=== PATIENT | male | born 1990 | race Two or more races ===

== ENCOUNTER 2021-10-13 16:11 | Emergency (ER) | payer SELFPAY ==
[~2021-10-13] VITALS: Ht 175.3 cm; Wt 90.0 kg
[2021-10-13] MEDS ORDERED: EPINEPHrine 1 MG/ML VIAL ONE (16:25)
[2021-10-13] MEDS ORDERED: IV RINGERS,LACTATED 1000ML 1,000 ML IV SCH (16:30)
[2021-10-13] MEDS ORDERED: EPINEPHrine 1 MG/ML VIAL SQ ONE (16:30)
[2021-10-13 16:32] VITALS: BP 137/88
[2021-10-13 16:37] LABS: BASO # 0.1 x10^3/uL (0.0-0.2); BASO % 1 % (0-3); EOS # 0.1 x10^3/uL (0.0-0.7); EOS % 1 % (0-3); HEMATOCRIT 49.1 % (39.0-53.0); HEMOGLOBIN 16.7 g/dL (13.0-17.5); LYMPH # 2.4 x10^3/uL (1.0-4.8); LYMPH % 18 % (24-48); MEAN CORPUSCULAR HEMOGLOBIN 30 pg (25-35); MEAN CORPUSCULAR HGB CONC 34 g/dL (31-37); MEAN CORPUSCULAR VOLUME 89 fL (79-100); MONO # 0.6 x10^3/uL (0.0-1.1); MONO % 5 % (0-9); NEUT # 9.7 x10^3/uL (1.8-7.7); NEUT % 75 % (31-73); PLATELET COUNT 228 x10^3/uL (140-400); RED BLOOD COUNT 5.54 x10^6/uL (4.30-5.70); RED CELL DISTRIBUTION WIDTH 13.8 % (11.5-14.5); WHITE BLOOD COUNT 12.8 x10^3/uL (4.0-11.0)
[2021-10-13 16:46] LABS: CALCIUM 9.3 mg/dL (8.5-10.1); GFR 88.3; POTASSIUM 4.1 mmol/L (3.5-5.1)
[2021-10-13 16:51] LABS: ALBUMIN 4.4 g/dL (3.4-5.0); TOTAL BILIRUBIN 0.3 mg/dL (0.2-1.0); TOTAL PROTEIN 8.7 g/dL (6.4-8.2)
--- NOTE | 2021-10-13 16:57 | RAD ---
INDICATION: Reason: SOB / Spl. Instructions: / History: COMPARISON: None. FINDINGS: Single view of chest obtained. Hypoexpanded exam without a definite well-defined focal consolidation. Cardiac silhouette is upper limits of normal. IMPRESSION: * Hypoexpanded exam without definite focal consolidation Electronically signed by: Isai Chan MD (10/13/2021 4:55 PM) [id number]
[2021-10-13] MEDS ORDERED: EPIPEN 2-P0.3 MG/0.3 IM (17:28)
--- NOTE | 2021-10-13 17:36 | PHYS DOC ---
Past Medical History Past Surgical History: No Surgical History Smoking Status: Current Every Day Smoker Alcohol Use: None General Adult EDM: Chief Complaint: ALLERGIC REACTION HPI: HPI: Patient is a 31 year old male who presents with allergic reaction. Patient states that he believes he is allergic to milk and seafood. He states he is a llergic to fish and shrimp. He states that he ate some fish and drink some milk yesterday. Patient states that since then he has been experiencing increasing signs of allergic reaction. Patient states that he feels like his face is swollen as well as his lips. Patient states that he was having some difficulty breathing little bit earlier today. Patient was not given epinephrine in the ambulance. Patient's vitals were normal upon presentation. Patient did not attempt any medications. Patient states he does not have a primary care physician since he just arrived to the [facility]. Review of Systems: Review of Systems: Constitutional: Denies fever or chills. [] Eyes: Denies change in visual acuity. [] HENT: Denies nasal congestion or sore throat. [] Respiratory: Positive shortness of breath prior to arrival. [] Cardiovascular: Denies chest pain or edema. [] GI: Denies abdominal pain, nausea, vomiting, bloody stools or diarrhea. [] : Denies dysuria. [] Musculoskeletal: Denies back pain or joint pain. [] Integument: Denies rash. [] Neurologic: Denies headache, focal weakness or sensory changes. [] Endocrine: Denies polyuria or polydipsia. [] Lymphatic: Denies swollen glands. [] Psychiatric: Denies depression or anxiety. [] Heart Score: C/O Chest Pain: No Risk Factors: Risk Factors: DM, Current or recent (<one month) smoker, HTN, HLP, family history of CAD, obesity. Risk Scores: Score 0 - 3: 2.5% MACE over next 6 weeks - Discharge Home Score 4 - 6: 20.3% MACE over next 6 weeks - Admit for Clinical Observation Score 7 - 10: 72.7% MACE over next 6 weeks - Early Invasive Strategies Current Medications: Current Medications Medications (Trade) Dose Ordered Sig/Etienne Start Time Stop Time Status Last Admin Dose Admin Epinephrine HCl (Adrenalin) 0.3 mg 1X ONCE 10/13/21 16:30 10/13/21 16:31 DC 10/13/21 16:29 0.3 MG Ringer's Solution 1,000 ml @ 1,000 mls/hr Q1H 10/13/21 16:30 10/13/21 17:29 DC 10/13/21 16:48 1,000 MLS/HR Allergies: Allergies: Allergies Coded Allergies Type Severity Reaction Last Updated Verified No Known Drug Allergies 10/13/21 No Physical Exam: PE: Constitutional: Well developed, well nourished, no acute distress, non-toxic appearance. [] HENT: Normocephalic, atraumatic, bilateral external ears normal, oropharynx moist, no oral exudates, nose normal. [] Eyes: PERRLA, EOMI, conjunctiva normal, no discharge. [] Neck: Normal range of motion, no tenderness, supple, no stridor. [] Cardiovascular:Heart rate regular rhythm, no murmur [] Lungs & Thorax: Bilateral breath sounds clear to auscultation [] Abdomen: Bowel sounds normal, soft, no tenderness, no masses, no pulsatile masses. [] Skin: Warm, dry, no erythema, no rash. Slight swelling to lips and chin. [] Back: No tenderness, no CVA tenderness. [] Extremities: No tenderness, no cyanosis, no clubbing, ROM intact, no edema. [] Neurologic: Alert and oriented X 3, normal motor function, normal sensory function, no focal deficits noted. [] Psychologic: Affect normal, judgement normal, mood normal. [] Current Patient Data: Labs: Laboratory Tests Test 10/13/21 16:25 White Blood Count 12.8 x10^3/uL (4.0-11.0) H Red Blood Count 5.54 x10^6/uL (4.30-5.70) Hemoglobin 16.7 g/dL (13.0-17.5) Hematocrit 49.1 % (39.0-53.0) Mean Corpuscular Volume 89 fL (79-100) Mean Corpuscular Hemoglobin 30 pg (25-35) Mean Corpuscular Hemoglobin Concent 34 g/dL (31-37) Red Cell Distribution Width 13.8 % (11.5-14.5) Platelet Count 228 x10^3/uL (140-400) Neutrophils (%) (Auto) 75 % (31-73) H Lymphocytes (%) (Auto) 18 % (24-48) L Monocytes (%) (Auto) 5 % (0-9) Eosinophils (%) (Auto) 1 % (0-3) Basophils (%) (Auto) 1 % (0-3) Neutrophils # (Auto) 9.7 x10^3/uL (1.8-7.7) H Lymphocytes # (Auto) 2.4 x10^3/uL (1.0-4.8) Monocytes # (Auto) 0.6 x10^3/uL (0.0-1.1) Eosinophils # (Auto) 0.1 x10^3/uL (0.0-0.7) Basophils # (Auto) 0.1 x10^3/uL (0.0-0.2) Sodium Level 140 mmol/L (136-145) Potassium Level 4.1 mmol/L (3.5-5.1) Chloride Level 101 mmol/L (98-107) Carbon Dioxide Level 27 mmol/L (21-32) Anion Gap 12 (6-14) Blood Urea Nitrogen 14 mg/dL (8-26) Creatinine 1.0 mg/dL (0.7-1.3) Estimated GFR (Cockcroft-Gault) 88.3 BUN/Creatinine Ratio 14 (6-20) Glucose Level 93 mg/dL (70-99) Calcium Level 9.3 mg/dL (8.5-10.1) Total Bilirubin 0.3 mg/dL (0.2-1.0) Aspartate Amino Transferase (AST) 30 U/L (15-37) Alanine Aminotransferase (ALT) 76 U/L (16-63) H Alkaline Phosphatase 97 U/L (46-116) Total Protein 8.7 g/dL (6.4-8.2) H Albumin 4.4 g/dL (3.4-5.0) Albumin/Globulin Ratio 1.0 (1.0-1.7) Laboratory Tests 10/13/21 16:25 Laboratory Tests 10/13/21 16:25 Vital Signs: Vital Signs Date Time Temp Pulse Resp B/P (MAP) Pulse Ox O2 Delivery O2 Flow Rate FiO2 10/13/21 16:32 98.0 84 20 137/88 (104) 98 98.0 EKG: EKG: [] Radiology/Procedures: Radiology/Procedures: Chest x-ray within normal limits Impression: 31-year-old male with allergic reaction to food Course & Med Decision Making: Course & Med Decision Making Pertinent Labs and Imaging studies reviewed. (See chart for details) Patient was given 1 dose of Benadryl in the ambulance. He was given 1 dose of epinephrine upon presentation as well as 1 L of saline. He was monitored. He stated he felt much better after receiving 1 dose of epinephrine. He stated that he has not seen his primary care physician. Patient was referred to primary care office. He was given a prescription for epinephrine in case of emergencies. Patient was instructed to avoid fish, shellfish, as well as milk. Patient states that he can do this. Patient states that he is comfortable going home. Since his exposure was the day prior to arrival, it is likely that his allergic reaction was very mild. Patient was stable throughout the hospitalization. Patient was stable at the time of discharge. All questions answered. Dragon Disclaimer: Dragon Disclaimer: This electronic medical record was generated, in whole or in part, using a voice recognition dictation system. Departure Departure Impression: Primary Impression: Allergic reaction to food Disposition: 01 HOME / SELF CARE / HOMELESS Condition: GOOD Patient Instructions: Food Allergy, [id number] Additional Instructions: Follow up with your primary care physician Epinephrine is for emergencies only, only use this medication if you believe you are experiencing a severe allergic reaction. Scripts Epinephrine (EPIPEN 2-DEN) 0.3 Mg/0.3 Ml Auto.injct 0.3 MG IM 1X for allergy, #1 SYR Prov: JANE LOPES MD 10/13/21 JANE LOPES MD Oct 13, 2021 17:36
== END 2021-10-13 17:56 | disposition home or self-care (01) ==
LOC: ER 16:11
DX: T78.1XXA Other adverse food reactions, not elsewhere classified, initial encounter (principal); F17.200 Nicotine dependence, unspecified, uncomplicated; Z91.011 Allergy to milk products
CPT/HCPCS: 36415; 71045; 80053; 85025; 96360; 96372; 99284; J0171; J7120